=== PATIENT | male | born 1985 | race Caucasian/White ===

== ENCOUNTER 2018-01-23 21:02 | Emergency (ER) | payer OTHER ==
[~2018-01-23] VITALS: Ht 180.3 cm; Wt 118.1 kg
[2018-01-23] MEDS ORDERED: MOTRIN800 MG PO (23:46)
[2018-01-24 00:14] VITALS: BP 147/90
== END 2018-01-24 00:14 | disposition home or self-care (01) ==
LOC: EME 21:02
DX: S43.401A Unspecified sprain of right shoulder joint, initial encounter (principal); S40.011A Contusion of right shoulder, initial encounter; S70.01XA Contusion of right hip, initial encounter; S80.01XA Contusion of right knee, initial encounter; M25.531 Pain in right wrist; W07.XXXA Fall from chair, initial encounter; Y92.511 Restaurant or cafe as the place of occurrence of the external cause
CPT/HCPCS: 73030; 73110; 73502; 73564; 99281; 99284